=== PATIENT | female | born 1995 | race Caucasian/White ===

== ENCOUNTER 2017-08-29 10:19 | Emergency (ER) | payer SELFPAY ==
[~2017-08-29 10:19] MED LIST: AMOX-559 PO; NO ROUTINE MEDS; PNV1CAPS53 PO
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
[2017-08-29] MEDS ORDERED: AMOX500T10 PO (11:28)
[2017-08-29] MEDS ORDERED: HYDR-385 PO (11:28)
[2017-08-29 11:46] VITALS: BP 119/72
== END 2017-08-29 11:50 | disposition home or self-care (01) ==
LOC: ER 10:30
DX: K08.89 Other specified disorders of teeth and supporting structures (principal)
CPT/HCPCS: 99283

== ENCOUNTER 2017-09-30 03:36 | Emergency (ER) | payer SELFPAY ==
[~2017-09-30 03:36] MED LIST changes: +AMOX500T10 PO; +HYDR-385 PO
[2017-09-30 03:39] VITALS: BP 127/64
--- NOTE | 2017-09-30 03:42 | ER Report ---
History and Physical Time Seen By MD: 03:37 HPI/ROS CHIEF COMPLAINT: Right upper toothache HISTORY OF PRESENT ILLNESS: 21-year-old female presents to the ER complaining of right upper toothache. Patient was seen here one month ago. Patient has a fractured tooth at position #2. Patient's unable to afford to follow-up with a dentist to get a proper repair. She does not difficulty swallowing REVIEW OF SYSTEMS: Respiratory: No cough, no dyspnea. Cardiovascular: No chest pain, no palpitations. Gastrointestinal: No vomiting, no abdominal pain. Musculoskeletal: No back pain. Allergies: Coded Allergies: No Known Drug Allergies (Verified , 09/30/17) Home Meds Active Scripts Hydrocodone Bit/Acetaminophen (NORCO 5-325 TABLET) 1 Each Tablet, 1 EACH PO Q4H Y for PAIN, #12 TAB Prov:VINAY ANGULO DO 09/30/17 Amoxicillin 500 Mg Tab (AMOXICILLIN 500 MG TAB) 500 Mg Tablet, 1 TAB PO Q8H for infection, #30 TAB Prov:VINAY ANGULO DO 09/30/17 Discontinued Scripts Hydrocodone Bit/Acetaminophen (HYDROCODON-ACETAMINOPHEN 5-325) 1 Each Tablet, 1 EACH PO Q4-6H Y for PAIN, #12 TAB Prov:MALATHI FREEMAN [employer] 08/29/17 Amoxicillin 500 Mg Tab (AMOXICILLIN 500 MG TAB) 500 Mg Tablet, 1 TAB PO Q8H for 7 Days, #21 TAB Prov:MALATHI FREEMAN [employer] 08/29/17 Reviewed Nurses Notes: Yes Old Medical Records Reviewed: Yes Hx Smoking: No Smoking Status: Never Smoker Exposure to Second Hand Smoke?: Yes Hx Substance Use Disorder: No Hx Alcohol Use: No Constitutional Vital Sign - Last 24 Hours 09/30/17 03:39 Pulse 81 Resp 24 B/P (MAP) 127/64 Pulse Ox 94 Physical Exam General Appearance: The patient is alert, has no immediate need for airway protection and no current signs of toxicity. Vital signs stable, afebrile, pulse ox normal HEENT: Pupils equal and round no injection. TMs normal, TMJs are nontender, examination of the oropharynx shows a fractured tooth at the posterior half missing of #2. Dentition is in good repair, otherwise. Respiratory: Chest is non tender, lungs are clear to auscultation. Cardiac: regular rate and rhythm Gastrointestinal: Abdomen is soft and non tender, no masses, bowel sounds normal. Musculoskeletal: Neck: Neck is supple and non tender. Extremities have full range of motion and are non tender. Skin: No rashes or lesions. DIFFERENTIAL DIAGNOSIS: After history and physical exam differential diagnosis was considered for tooth abscess, toothache, dental fracture, TMJ, sinus infection Medical Decision Making ED Course/Re-evaluation ED Course Patient was admitted to an examination room. H&P was done. The differential diagnoses was considered. On clinical examination. Patient has a fractured tooth. Should be covered with amoxicillin for infection. She'll of the supply of [place] for pain relief. Patient advised to follow-up with a dentist as soon as possible. She was provided a list of local dentist. Decision to Disposition Date: Sep 30, 2017 Decision to Disposition Time: 03:51 Depart Departure Latest Vital Signs Vital Signs Date Time Temp Pulse Resp B/P (MAP) Pulse Ox O2 Delivery O2 Flow Rate FiO2 09/30/17 03:39 81 24 127/64 94 Impression: Primary Impression: Tooth ache Additional Impression: Fractured tooth Condition: Improved Disposition: HOME OR SELF-CARE New Scripts Hydrocodone Bit/Acetaminophen (NORCO 5-325 TABLET) 1 Each Tablet 1 EACH PO Q4H Y for PAIN, #12 TAB Prov: VINAY ANGULO DO 09/30/17 Amoxicillin 500 Mg Tab (AMOXICILLIN 500 MG TAB) 500 Mg Tablet 1 TAB PO Q8H for infection, #30 TAB Prov: VINAY ANGULO DO 09/30/17 Patient Instructions: Toothache (ED) Additional Instructions: Take ibuprofen 200 mg 3-4 tablets 3 times a day with food Problem Qualifiers Additional Impression: Fractured tooth Encounter type: initial encounter Fracture type: open Qualified Codes: S02.5XXB - Fracture of tooth (traumatic), initial encounter for open fracture VINAY ANGULO DO Sep 30, 2017 03:42
[2017-09-30] MEDS ORDERED: AMOXICILLIN 500 MG CAP PO ONE (03:50)
[2017-09-30] MEDS ORDERED: ACET/HYDROC 5/325MG TH ER ONLY 2 TAB/BOTTLE PO ONE (03:50)
[2017-09-30] MEDS ORDERED: HYDR-4309 PO (03:56)
[2017-09-30] MEDS ORDERED: AMOX500T10 PO (03:56)
== END 2017-09-30 04:04 | disposition home or self-care (01) ==
LOC: ER 03:44
DX: S02.5XXB Fracture of tooth (traumatic), initial encounter for open fracture (principal)
CPT/HCPCS: 99282

== ENCOUNTER 2018-07-18 01:50 | Emergency (ER) | payer SELFPAY ==
[~2018-07-18 01:50] MED LIST changes: +HYDR-653 PO
--- NOTE | 2018-07-18 02:02 | ER Report ---
History and Physical Time Seen By MD: 01:52 HPI/ROS CHIEF COMPLAINT: Right ankle pain HISTORY OF PRESENT ILLNESS: This is an otherwise healthy 22-year-old female who was going down the steps in the dark and slipped and fell. She twisted her ankle is complaining of medial malleolus pain. She denies any other injuries at this time. Review of systems musculoskeletal: No knee pain no proximal fibular pain. Right ankle pain Allergies: Coded Allergies: No Known Drug Allergies (Verified , 07/18/18) Home Meds Active Scripts Oxycodone Hcl/Acetaminophen (PERCOCET 5-325 MG TABLET) 1 Each Tablet, 1 EACH PO Q4H for PAIN, #30 TAB 0 Refills Prov:VANDA BLACKWOOD MD 07/18/18 Hydrocodone Bit/Acetaminophen (NORCO 5-325 TABLET) 1 Each Tablet, 1 EACH PO Q4H PRN for PAIN, #12 TAB Prov:VINAY ANGULO DO 09/30/17 Amoxicillin 500 Mg Tab (AMOXICILLIN 500 MG TAB) 500 Mg Tablet, 1 TAB PO Q8H for infection, #30 TAB Prov:VINAY ANGULO DO 09/30/17 Past Medical/Surgical History Noncontributory towards this chief complaint Hx Smoking: No Smoking Status: Never Smoker Exposure to Second Hand Smoke?: Yes Hx Substance Use Disorder: No Hx Alcohol Use: No Constitutional Vital Sign - Last 24 Hours 07/18/18 07/18/18 07/18/18 07/18/18 01:55 01:55 02:00 02:05 Temp 99.5 Pulse 126 132 Resp 18 B/P (MAP) 124/94 124/94 (104) Pulse Ox 93 90 93 O2 Delivery Room Air 07/18/18 07/18/18 07/18/18 07/18/18 02:10 02:15 02:20 02:30 Pulse 121 119 B/P (MAP) 143/87 (105) Pulse Ox 90 90 90 07/18/18 07/18/18 07/18/18 07/18/18 02:50 02:55 03:00 03:05 Pulse 111 Resp 14 B/P (MAP) 117/105 (109) 134/102 (113) 141/96 (111) 147/113 (124) Pulse Ox 89 07/18/18 07/18/18 07/18/18 07/18/18 03:10 03:15 03:20 03:21 Pulse 128 125 115 118 Resp 21 52 15 20 B/P (MAP) 149/90 (109) 150/91 (110) Pulse Ox 81 95 97 96 Intake and Output 07/17/18 07/17/18 07/18/18 15:00 23:00 07:00 Intake Total 200 ml Balance 200 ml Physical Exam General appearance: alert no distress Right ankle: There is no significant swelling. There is no obvious deformity to the ankle. There is moderate tenderness to the medial malleolus. Ankle joint is stable and there is no tenderness over the achilles tendon. The foot is non-tender without swelling. Neurologic exam: The patient has normal sensation distal to the injury. Vascular exam: Normal pulses and capillary refill in the foot [ ] DIFFERENTIAL DIAGNOSIS: After history and physical exam differential diagnosis was considered for ankle injury including sprain, fracture, dislocation and soft tissue injury. Medical Decision Making EKG/Imaging Imaging [place]AC[place] [facility] [place]IENT NAME: Mable Hutton : 1995 MR: [id number] V: [id number] EXAM DATE: ORDERING PHYSICIAN: VANDA BLACKWOOD TECHNOLOGIST: Location: [facility] [place] Patient: Mable Hutton : 1995 Visit/Account:[id number] Date of Sevice: 07/18/2018 ANKLE 3 VIEW MIN RIGHT HISTORY: Medial malleolar pain after fall down stairs. COMPARISON: None. TECHNIQUE: AP, mortise, and lateral views of the right ankle. FINDINGS: There is an oblique fracture through the distal fibular diaphysis. There is anterior and medial displacement of the proximal fracture fragment compared to the distal. There is widening of the medial mortise joint, measuring 1.3 cm, due to medial displacement of the tibia compared to the talus. There is associated soft tissue swelling. IMPRESSION: 1. Oblique distal fibular fracture, mildly displaced. 2. Medial displacement of the tibia compared to the talus with widening of the medial mortise joint. Report Dictated By: Sunita Muhammad at 07/18/2018 2:44 AM Report E-Signed By: Sunita Muhammad at 07/18/2018 2:49 AM WSN:[id number] FACILITY: [facility] [place] PATIENT NAME: Mable Hutton : 1995 MR: [id number] V: [id number] EXAM DATE: [id number] ORDERING PHYSICIAN: VANDA BLACKWOOD TECHNOLOGIST: Location: [facility] [place] Patient: Mable Hutton : 1995 Visit/Account:[id number] Date of Sevice: 07/18/2018 INDICATION: post reduction EXAM DATE: 07/18/2018 2:57 AM COMPARISON: Same-day radiographs. FINDINGS: 2 views right ankle. Mineralization is normal. Improved talotibial alignment with persistent but decreased widening at the medial aspect of the ankle mortise. Redemonstration of distal fibular fracture with persistent posterior displacement of the distal fragment, unchanged to slightly increased. There is now a splint/cast material in place. IMPRESSION: 1. Improved right talotibial alignment with persistent widening at the medial and aspect of the ankle mortise. 2. Obliquely oriented distal fibular fracture with persistent posterior displacement. Report Dictated By: Dwayne Sheets MD at 07/18/2018 3:36 AM Report E-Signed By: Dwayne Sheets MD at 07/18/2018 3:38 AM WSN:[id number] ED Course/Re-evaluation ED Course 07/18/2018 2:08:16 am this time will be x-ray of the right ankle. Patient was offered pain medication; however she refused at this time. 07/18/2018 2:58:14 am Procedure: Procedural sedation. A pre-sedation evaluation was completed on the patient at 0235. Patient is an appropriate candidate for procedural sedation. The risks of the sedation were discussed with the patient. A time out was completed. The patient was reevalu ated immediately prior to initiation of sedation. The patient was sedated with 70 mg of ketamine and 50 mg of propofol. The patient was monitored with continuous pulse oximetry and cafeteria monitor. There were no complications and no significant hypoxemia. I remained at the bedside for the sedation. The total time I spent in the procedural sedation was 15 minutes. Post sedation shelli luation: Patient was alert and cooperative, hemodynamically stable with appropriate respiratory status, temperature and pain control without ongoing nausea and vomiting. Procedure: Fracture reduction. After review of the X-rays I determined that a reduction was required for improved intermediate project manager function. The distal fibula and ankle was reduced using traction and manipulation without complications. A short leg posterior splint along with a short leg tong splint was applied. Post reduction the patient's neurovascular exam is normal. Post reduction x-ray demonstrates improvement in fracture with an acceptable reduction of the fracture. The procedure was performed by myself. 07/18/2018 3:40:41 am spoke with who is on-call for [facility]. History physical exam and x-ray findings as well as post reduction films were reviewed. Patient will be discharged to home in a posterior and sugar tong splint with crutches with instructions to call [facility] for follow-up for her ankle fracture. Decision to Disposition Date: Jul 18, 2018 Decision to Disposition Time: 03:48 Depart Departure Latest Vital Signs Vital Signs Date Time Temp Pulse Resp B/P (MAP) Pulse Ox O2 Delivery O2 Flow Rate FiO2 07/18/18 03:21 118 20 96 07/18/18 03:15 150/91 (110) 07/18/18 01:55 99.5 Room Air Impression: Primary Impression: Ankle fracture, right Additional Impression: Ankle dislocation Condition: Improved Disposition: HOME OR SELF-CARE Referrals: [facility] Call later this morning to establish care and follow up of right ankle fracture/dislocation New Scripts Oxycodone Hcl/Acetaminophen (PERCOCET 5-325 MG TABLET) 1 Each Tablet 1 EACH PO Q4H for PAIN, #30 TAB 0 Refills Prov: VANDA BLACKWOOD MD 07/18/18 Patient Instructions: Ankle Fracture (DC), Crutch Instructions (DC), Splint Care (DC) Problem Qualifiers Primary Impression: Ankle fracture, right Encounter type: initial encounter Fracture type: closed Qualified Codes: S82.891A - Other fracture of right lower leg, initial encounter for closed fracture Additional Impression: Ankle dislocation Encounter type: initial encounter Laterality: right Qualified Codes: S93.04XA - Dislocation of right ankle joint, initial encounter VANDA BLACKWOOD MD Jul 18, 2018 02:02
[2018-07-18] MEDS ORDERED: ONDANSETRON 4 MG/2 ML VIAL IVP ONE (02:30)
[2018-07-18] MEDS ORDERED: fentaNYL CITR 100 MCG/2 ML AMP IVP ONE (02:30)
[2018-07-18] MEDS ORDERED: KETAMINE HCL 500 MG/5 ML VIAL IVP ONE (02:30)
[2018-07-18] MEDS ORDERED: PROPOFOL EMUL 10MG/ML 20 ML VL IVP ONE (02:30)
[2018-07-18] MEDS ORDERED: NS(*) 0.9% 1000 ML BAG 1,000 ML IV ONE (02:30)
--- NOTE | 2018-07-18 02:53 | RADIOLOGY IMAGING REPORT ---
FACILITY: [facility] PATIENT NAME: Mable Hutton : 1995 MR: [id number] V: [id number] EXAM DATE: ORDERING PHYSICIAN: VANDA BLACKWOOD TECHNOLOGIST: Location: [facility] Patient: Mable Hutton : 1995 Visit/Account:[id number] Date of Sevice: 07/18/2018 ANKLE 3 VIEW MIN RIGHT HISTORY: Medial malleolar pain after fall down stairs. COMPARISON: None. TECHNIQUE: AP, mortise, and lateral views of the right ankle. FINDINGS: There is an oblique fracture through the distal fibular diaphysis. There is anterior and me dial displacement of the proximal fracture fragment compared to the distal. There is widening of the medial mortise joint, measuring 1.3 cm, due to medial displacement of the ti zaire compared to the talus. There is associated soft tissue swelling. IMPRESSION: 1. Oblique distal fibular fracture, mildly displaced. 2. Medial displacement of the tibia compared to the talus with widening of the medial mortise joint. Report Dictated By: Sunita Muhammad at 07/18/2018 2:44 AM Report E-Signed By: Sunita Muhammad at 07/18/2018 2:49 AM WSN:[id number]
[2018-07-18 03:15] VITALS: BP 150/91
[2018-07-18] MEDS ORDERED: oxyCODONE/ACETAMIN 5/325MG TH 2 TAB/BOTTLE PO ONE (03:15)
[2018-07-18] MEDS ORDERED: OXYC-865 PO ×2 (03:19→03:49)
--- NOTE | 2018-07-18 03:42 | RADIOLOGY IMAGING REPORT ---
FACILITY: [facility] PATIENT NAME: Mable Hutton : 1995 MR: [id number] V: [id number] EXAM DATE: [id number] ORDERING PHYSICIAN: VANDA BLACKWOOD TECHNOLOGIST: Location: [facility] [place] Patient: Mable Hutton : 1995 Visit/Account:[id number] Date of Sevice: 07/18/2018 INDICATION: post reduction EXAM DATE: 07/18/2018 2:57 AM COMPARISON: Same-day radiographs. FINDINGS: 2 views right ankle. Mineralization is normal. Improved talotibial alignment with persistent but dec reased widening at the medial aspect of the ankle mortise. Redemonstration of distal fibular fractur e with persistent posterior displacement of the distal fragment, unchanged to slightly increased. Th ere is now a splint/cast material in place. IMPRESSION: 1. Improved right talotibial alignment with persistent widening at the medial and aspect of the ankl e mortise. 2. Obliquely oriented distal fibular fracture with persistent posterior displacement. Report Dictated By: Dwayne Sheets MD at 07/18/2018 3:36 AM Report E-Signed By: Dwayne Sheets MD at 07/18/2018 3:38 AM WSN:[id number]
== END 2018-07-18 03:54 | disposition home or self-care (01) ==
LOC: ER 02:13
DX: S82.431A Displaced oblique fracture of shaft of right fibula, initial encounter for closed fracture (principal); S93.04XA Dislocation of right ankle joint, initial encounter; W10.9XXA Fall (on) (from) unspecified stairs and steps, initial encounter
CPT/HCPCS: 27788; 73600; 73610; 96374; 96375; 99152; 99153; 99285; J2405; J2704; J3010; J7030

== ENCOUNTER 2018-12-12 02:27 | Emergency (ER) | payer SELFPAY ==
[~2018-12-12 02:27] MED LIST changes: +OXYC-865 PO
[2018-12-12 02:31] VITALS: BP 127/95
--- NOTE | 2018-12-12 02:35 | ER Report ---
History and Physical Time Seen By MD: 02:32 Hx. of Stated Complaint: PATIENT HAS SURGERY TO REPAIR A BROKEN ANKLE ON September. PATIENT NOTICED TO NIGHT A LOT OF SWELLING RIGHT ANKLE IN THE SAME PLACE SURGERY WAS PERFORMED. HPI/ROS CHIEF COMPLAINT: right ankle swelling HISTORY OF PRESENT ILLNESS: This is a 23 year old female. She had a right ankle fracture in August, surgically repaired by orthopedic surgery in [place] on September 09. Has been in walking boot for a few months now. Tonight took the boot off and noted swelling in the right ankle and lower leg. No pain associated. Has normal sensation. No recent injuries. No shortness of breath. No history of blood clots. No fevers or chills. No problems since surgery, has not seen swelling when boot is off over the last few weeks. Allergies: Coded Allergies: No Known Drug Allergies (Verified , 07/18/18) Home Meds Discontinued Scripts Oxycodone Hcl/Acetaminophen (PERCOCET 5-325 MG TABLET) 1 Each Tablet, 1 EACH PO Q4H for PAIN, #30 TAB 0 Refills Prov:VANDA BLACKWOOD MD 07/18/18 Hydrocodone Bit/Acetaminophen (NORCO 5-325 TABLET) 1 Each Tablet, 1 EACH PO Q4H PRN for PAIN, #12 TAB Prov:VINAY ANGULO DO 09/30/17 Amoxicillin 500 Mg Tab (AMOXICILLIN 500 MG TAB) 500 Mg Tablet, 1 TAB PO Q8H for infection, #30 TAB Prov:VINAY ANGULO DO 09/30/17 Reviewed Nurses Notes: Yes Hx Smoking: No Smoking Status: Never Smoker Exposure to Second Hand Smoke?: Yes Hx Substance Use Disorder: No Hx Alcohol Use: No Constitutional Vital Sign - Last 24 Hours 12/12/18 12/12/18 12/12/18 12/12/18 02:31 02:57 03:27 03:57 Temp 98.8 Pulse 131 119 104 103 Resp 20 B/P (MAP) 127/95 Pulse Ox 94 92 93 100 12/12/18 12/12/18 04:02 04:32 Pulse 120 118 Pulse Ox 91 95 Physical Exam General: Alert, no distress, but is anxious about the swelling. Skin: well healed skin incisions from surgery. No warmth, redness or and rash or lesions otherwise. Musculoskeletal: No pain with palpation of the ankle. Cardiovascular: Normal DP and PT pulses with cap refill normal in the toes. Neuro: Normal sensation. Medical Decision Making Data Points Result Diagram: 12/12/18 0309 12/12/18 0309 Laboratory Hematology Test 12/12/18 03:09 White Blood Count 9.6 k/uL (4.5-11.0) Red Blood Count 4.58 M/uL (4.17-5.56) Hemoglobin 14.2 g/dL (12.0-16.0) Hematocrit 42.2 % (34.0-47.0) Mean Corpuscular Volume 92.0 fL (80.0-96.0) Mean Corpuscular Hemoglobin 31.1 pg (26.0-33.0) Mean Corpuscular Hemoglobin Concent 33.8 g/dL (32.0-36.0) Red Cell Distribution Width 13.8 % (11.5-14.5) Platelet Count 300 K/uL (150-450) Mean Platelet Volume 7.8 fL (7.2-11.1) Neutrophils (%) (Auto) 78.3 % (39.4-72.5) H Lymphocytes (%) (Auto) 14.4 % (17.6-49.6) L Monocytes (%) (Auto) 6.4 % (4.1-12.4) Eosinophils (%) (Auto) 0.5 % (0.4-6.7) Basophils (%) (Auto) 0.4 % (0.3-1.4) Nucleated RBC Relative Count (auto) 0.1 /100WBC Neutrophils # (Auto) 7.5 K/uL (2.0-7.4) H Lymphocytes # (Auto) 1.4 K/uL (1.3-3.6) Monocytes # (Auto) 0.6 K/uL (0.3-1.0) Eosinophils # (Auto) 0.0 K/uL (0.0-0.5) Basophils # (Auto) 0.0 K/uL (0.0-0.1) Nucleated RBC Absolute Count (auto) 0.01 K/uL Erythrocyte Sedimentation Rate 18 mm/HOUR (0-20) Chemistry Test 12/12/18 03:09 Sodium Level 140 mmol/L (137-145) Potassium Level 3.5 mmol/L (3.5-5.0) Chloride Level 104 mmol/L (98-107) Carbon Dioxide Level 24 mmol/L (22-31) Blood Urea Nitrogen 9 mg/dl (7-18) Creatinine 0.70 mg/dl (0.52-1.04) Glomerular Filtration Rate Calc > 60.0 Random Glucose 92 mg/dl (75-110) Calcium Level 8.7 mg/dl (8.4-10.2) Total Bilirubin 0.6 mg/dl (0.2-1.3) Aspartate Amino Transf (AST/SGOT) 31 U/L (0-35) Alanine Aminotransferase (ALT/SGPT) 42 U/L (0-56) Alkaline Phosphatase 112 U/L (0-126) C-Reactive Protein 1.5 mg/dl (<1.0) Total Protein 7.9 g/dl (6.3-8.2) Albumin 4.1 g/dl (3.5-5.0) EKG/Imaging Imaging ANKLE 3 VIEW MIN RIGHT COMPARISONS: July 18, 2018 ADDITIONAL PERTINENT HISTORY: Ankle swelling and leg swelling with recent surgery for fracture. FINDINGS: Osseous structures: Patient status post previous plate and screw fixation involving the distal right fibular diaphysis. Suture anchors in place along the medial cortex of the distal right tibia. The fracture is undergone interval healing. No new bony abnormalities. Joint spaces: Negative. Surrounding soft tissues: Mild bimalleolar soft tissue swelling. IMPRESSION: 1. Interval postoperative changes involving the right ankle. 2. No acute appearing bony abnormalities. 3. Bimalleolar soft tissue swelling Report Dictated By: Vel Krueger MD at 12/12/2018 3:33 AM Duplex Doppler ultrasound of the right lower extremity: Indication: Chronic swelling. Technique: Compression ultrasound with duplex Doppler imaging was performed. Comparison: None available. Findings: There is normal compression of the right common femoral, superficial femoral, popliteal, peroneal, anterior tibial, posterior tibial, and proximal saphenous veins. There is no evidence of echogenic thrombus. The Doppler patterns of resting flow and augmentation are within normal limits. There is no mass or fluid collection. IMPRESSION: No evidence of deep vein thrombosis in the right lower extremity. Report Dictated By: Jacoby Pearson MD at 12/12/2018 4:11 AM ED Course/Re-evaluation Clinical Indication for ER IV: IV Access ED Course Labs obtained. Plain films obtained. Ultrasound obtained. These showed post- surgical changes, some swelling bimalleolar, but no sign of blood clots. No sign of infection, normal CBC and CMP. Mild elevation of CRP. Recommended elevation and continued use of the boot and that they follow-up with her surgeon for re- evaluation. Decision to Disposition Date: Dec 12, 2018 Decision to Disposition Time: 04:25 Depart Departure Latest Vital Signs Vital Signs Date Time Temp Pulse Resp B/P (MAP) Pulse Ox O2 Delivery O2 Flow Rate FiO2 12/12/18 04:32 118 95 12/12/18 02:31 98.8 20 127/95 Impression: Primary Impression: Right ankle swelling Condition: Improved Disposition: HOME OR SELF-CARE New Scripts No Active Prescriptions or Reported Meds Patient Instructions: Swollen Ankle Joint (ED) Additional Instructions: Please call your orthopedic surgeon tomorrow to arrange a follow-up visit. Let them know you were seen in the ER tonight and had negative x-ray as well as an ultrasound that was negative for blood clots. Labs negative for infection, but mild elevation of CRP and negative ESR suggesting inflammation. JOHANNA WADE MD Dec 12, 2018 02:35
[2018-12-12 03:21] LABS: PLATELET COUNT, AUTOMATED 300 K/uL (150-450)
--- NOTE | 2018-12-12 03:41 | RADIOLOGY IMAGING REPORT ---
FACILITY: [facility] [place] PATIENT NAME: Mable Hutton : 1995 MR: [id number] V: [id number] EXAM DATE: ORDERING PHYSICIAN: JOHANNA WADE TECHNOLOGIST: Location: [facility] Patient: Mable Hutton : 1995 Visit/Account:[id number] Date of Sevice: 12/12/2018 ANKLE 3 VIEW MIN RIGHT COMPARISONS: July 18, 2018 ADDITIONAL PERTINENT HISTORY: Ankle swelling and leg swelling with recent surgery for fracture. FINDINGS: Osseous structures: Patient status post previous plate and screw fixation involving the distal right fibular diaphysis. Suture anchors in place along the medial cortex of the distal right tibia. The fra cture is undergone interval healing. No new bony abnormalities. Joint spaces: Negative. Surrounding soft tissues: Mild bimalleolar soft tissue swelling. IMPRESSION: 1. Interval postoperative changes involving the right ankle. 2. No acute appearing bony abnormalities. 3. Bimalleolar soft tissue swelling Report Dictated By: Vel Krueger MD at 12/12/2018 3:33 AM Report E-Signed By: Vel Krueger MD at 12/12/2018 3:35 AM WSN:[id number]
--- NOTE | 2018-12-12 04:22 | RADIOLOGY IMAGING REPORT ---
FACILITY: [facility] PATIENT NAME: Mable Hutton : 1995 MR: [id number] V: [id number] EXAM DATE: ORDERING PHYSICIAN: JOHANNA WADE TECHNOLOGIST: [place] [facility] [place] Mable H[place] : 1995 Visit/Account:[id number] Date of Sevice: 12/12/2018 Duplex Doppler ultrasound of the right lower extremity: Indication: Chronic swelling. Technique: Compression ultrasound with duplex Doppler imaging was performed. Comparison: None available. Findings: There is normal compression of the right common femoral, superficial femoral, popliteal, pe roneal, anterior tibial, posterior tibial, and proximal saphenous veins. There is no evidence of echo genic thrombus. The Doppler patterns of resting flow and augmentation are within normal limits. There is no mass or fluid collection. IMPRESSION: No evidence of deep vein thrombosis in the right lower extremity. Report Dictated By: Jacoby Pearson MD at 12/12/2018 4:11 AM Report E-Signed By: Jacoby Pearson MD at 12/12/2018 4:17 AM [id number]
== END 2018-12-12 04:36 | disposition home or self-care (01) ==
LOC: ER 02:48
DX: M79.89 Other specified soft tissue disorders (principal)
CPT/HCPCS: 82040; 82247; 82310; 82374; 82435; 82565; 82947; 84075; 84132; 84155; 84295; 84450; 84460; 84520; 85025; 85651; 86140; 99284